=== PATIENT | female | born 1940 | race Caucasian/White ===

== ENCOUNTER 2019-03-29 18:14 | Observation (INO) ==
[2019-03-29] MEDS ORDERED: 0.9 % Sodium Chloride 1,000 ML IVC ONE (18:48)
[2019-03-29 19:00] LABS: Basophils # 0.1 K/mcL (0.0-0.2); Basophils % 1.1 %; Eosinophils # 0.2 K/mcL (0.0-0.6); Eosinophils % 3.2 %; Hematocrit 43.9 % (35.3-44.9); Hemoglobin 13.7 g/dL (11.5-15.4); Immature Granulocytes % 0.5 % (0-4); Lymphocytes % 18.2 %; Mean Corpuscular HGB Conc 31.2 g/dL (31.6-35.5); Mean Corpuscular Hemoglobin 26.5 pg (28.0-33.3); Mean Corpuscular Volume 84.9 fL (83.0-100.0); Mean Platelet Volume 10.7 fL (9.4-12.4); Monocytes # 0.4 K/mcL (0.0-1.3); Monocytes % 7.2 %; Neutrophils # 3.9 K/mcL (1.6-8.9); Platelet Count 178 K/mcL (140-400); Red Blood Count 5.17 M/mcL (3.82-4.97); Red Cell Distribution Width 14.1 % (11.5-14.5); Segmented Neutrophils % 69.8 %; White Blood Count 5.5 K/mcL (4.3-11.1)
--- NOTE | 2019-03-29 19:00 | Emergency Department Note ---
Disposition Clinical Impression: Lightheadedness, Atrial fibrillation with RVR, Near syncope Disposition: Admitted As Inpatient Time of Disposition: 20:50 General Adult HPI - General Chief complaint: ED Dizziness Stated complaint: "dizzy" Time Seen by Provider: 03/29/19 18:21 Source: patient Mode of arrival: private vehicle Limitations: no limitations Nursing Notes Reviewed: Yes Vital Signs Reviewed: Yes - History of Present Illness HPI Narrative: Patient is a 73-year-old female with a past medical history including hypertension, diabetes mellitus2, atrial fibrillation on Cardizem 24 hour release 120 mg and Xarelto number presenting with chief complaint of lightheadedness. The patient states she was at her daughter's house yesterday and when she stood up she developed lightheadedness. She felt nauseous and felt fuzzy in her head and thought she was going to pass out. She stated it lasted about an hour improved when she put a cold wash rags on her head. She denied any chest pain or shortness of breath. She states she has been eating and drinking well. Today while sitting in her rocker chair, she states she suddenly developed the lightheadedness again. She denies any loss of consciousness, chest pain or shortness of breath with this episode. She states it lasted for several minutes. Denies vomiting, abdominal pain, diarrhea, hematuria or dysuria, blood in her stool, recent changes in her medications. She states she recently started vitamin D supplementation. Denies palpitations. The patient states she is not always in A. fib and usually not in A. fib. Pain Scale: 0 - Related Data Home Medications Medication Instructions Recorded Confirmed Aspirin [Adult Aspirin] 81 mg PO HS 03/29/19 03/29/19 Loratadine [Claritin] 10 mg PO DAILY PRN 03/29/19 03/29/19 Metformin HCl 1,000 mg PO BID 03/29/19 03/29/19 Rivaroxaban [Xarelto] 20 mg PO DAILY 03/29/19 03/29/19 Triamterene/HCTZ 37.5/25mg 1 each PO DAILY 03/29/19 03/29/19 [Dyazide] dilTIAZem HCl [Diltiazem 24Hr ER] 120 mg PO DAILY 03/29/19 03/29/19 Allergies Allergy/AdvReac Type Severity Reaction Status Date / Time Penicillins Allergy Rash Verified 03/29/19 18:16 Sulfa (Sulfonamide Allergy Rash Verified 03/29/19 18:16 Antibiotics) adhesive tape AdvReac Redness of Verified 03/29/19 18:16 Skin cephalexin [From Keflex] AdvReac Rash Verified 03/29/19 18:16 All systems ED: reviewed and negative except as stated. Review of Systems: As Per HPI Constitutional: Denies: fever, chills Eyes: Denies: vision change Cardiovascular: Reports: syncope. Denies: chest pain, palpitations Respiratory: Denies: cough, dyspnea Gastrointestinal: Reports: nausea. Denies: abdominal pain, vomiting Genitourinary: Denies: dysuria, hematuria Musculoskeletal: Denies: back pain Neurological: Denies: headache, weakness Past Medical History - Past Medical History Attestation: Yes The following information was validated with the patient. Source: patient Medical history: Reports: atrial fibrillation, diabetes Surgical history: Reports: hysterectomy Psychiatric history: Reports: no psych history - Social History Smoking Status: Never smoker Smokeless Tobacco Status: No Alcohol use: Reports: none Drug use: Reports: none Physical Exam - General Limitations: no limitations General appearance: alert, in no apparent distress - Head Head exam: atraumatic, normocephalic - Eye Eye exam: Present: normal appearance, EOMI - ENT ENT exam: normal exam, normal oropharynx - Neck Neck exam: Present: normal inspection, trachea midline - Chest Chest inspection: Present: normal inspection, symmetric chest wall rise - Respiratory Respiratory exam: Present: normal lung sounds bilaterally. Absent: respiratory distress, wheezes - Cardiovascular Cardiovascular exam: Present: tachycardia, irregular rhythm, other (Bilateral radial pulses are equal and palpable) - Abdominal Exam Abdominal exam: Present: soft, Non-Tender. Absent: distention - Extremities Exam Extremities exam: Present: normal inspection, normal capillary refill. Absent: pedal edema, calf tenderness - Neurological Exam Neurological exam: Present: alert, oriented X3, CN II-XII intact. Absent: motor sensory deficit - Expanded Neurological Exam Speech: Present: fluid speech Motor strength - LUE: 5/5 Motor strength - RUE: 5/5 Motor strength - LLE: 5/5 Motor strength - RLE: 5/5 - Psychiatric Psychiatric exam: Present: normal affect, normal mood - Skin Skin exam: Present: warm, dry Course Vital Signs Temperature 98.1 F 03/29/19 18:15 Pulse Rate 110 03/29/19 18:15 Respiratory Rate 18 03/29/19 18:15 Blood Pressure 209/107 03/29/19 18:15 O2 Sat by Pulse Oximetry 99 03/29/19 18:15 Temperature 98.1 F 03/29/19 18:15 Pulse Rate 94 03/29/19 20:05 Respiratory Rate 16 03/29/19 20:05 Blood Pressure 162/80 03/29/19 20:05 O2 Sat by Pulse Oximetry 100 03/29/19 20:05 Oxygen Delivery Oxygen Delivery Room Air Medical Decision Making - MDM Narrative Medical decision making narrative: Patient has history of atrial fibrillation as is on Cardizem, once a day when 20 mg, Eliquis. She arrived with atrial fibrillation with RVR with heart rate in the [address] changes. She denies any chest pain or shortness of breath but has had 2 episodes in the last 2 days of lightheadedness and feeling like she was going to pass out. Suspect this is secondary to her atrial fibrillation. No recent illnesses. She is afebrile. Normotensive blood pressure. We will obtain lab work, chest x-ray. Patient states that she was recently on ciprofloxacin which she completed for a urinary tract infection or longer complains of dysuria or hematuria. 20:00 Labs reviewed. TSH mildly evaluated. HR now in the 80s and still irregular. We will admit the patient for symptomatic atrial fibrillation, she may need her medications readjusted. The hospitalist has been paged for admission. 20:35 Discussed with hospitalist, Dr. Thompson who does accept admission however he would like me to call cardiology and discussed with him how the patient has new T-wave changes in lead 2. Aspirin will be given. 20:[address] López, cardiology. No further recommendations at this time. - Medical Records Medical records reviewed: Yes I reviewed the patient's medical records. - Lab Data Lab results reviewed: Yes I reviewed the patient's lab results. Result diagrams: 03/29/19 18:40 03/29/19 18:40 Lab Results 03/29/19 03/29/19 03/29/19 Range/Units 18:40 18:40 18:40 WBC 5.5 (4.3-11.1) K/mcL RBC 5.17 H (3.82-4.97) M/mcL Hgb 13.7 (11.5-15.4) g/dL Hct 43.9 (35.3-44.9) % MCV 84.9 (83.0-100.0) fL MCH 26.5 L (28.0-33.3) pg MCHC 31.2 L (31.6-35.5) g/dL RDW 14.1 (11.5-14.5) % Plt Count 178 (140-400) K/mcL MPV 10.7 (9.4-12.4) fL Immature Gran % 0.5 (0-4) % Seg Neutrophils % 69.8 % Lymphocytes % 18.2 % Monocytes % 7.2 % Eosinophils % 3.2 % Basophils % 1.1 % Neutrophils # 3.9 (1.6-8.9) K/mcL Lymphocytes # 1.0 (0.6-4.6) K/mcL Monocytes # 0.4 (0.0-1.3) K/mcL Eosinophils # 0.2 (0.0-0.6) K/mcL Basophils # 0.1 (0.0-0.2) K/mcL PT 10.6 (9.4-12.1) Seconds INR 0.9 APTT 31.2 (26.0-36.0) Seconds Sodium 142 (136-145) mEq/L Potassium 4.5 (3.5-5.1) mEq/L Chloride 106 (98-107) mEq/L Carbon Dioxide 26 (23-29) mEq/L BUN 30 H (8-23) mg/dL Creatinine 1.03 (0.60-1.20) mg/dL Est GFR ( Amer) > 60 (> 60) Est GFR (Non-Af Amer) 52 L (> 60) BUN/Creatinine Ratio 29 H (6-26) Glucose 265 H (70-105) mg/dL Calculated Osmolality 309 H (280-300) Calcium 9.9 (8.6-10.3) mg/dL Troponin I < 0.03 (< 0.04) ng/mL TSH 5.671 H (0.340-5.600) mcIU/mL Urine Color (Yellow) Urine Clarity (Clear) Urine pH (5.0-8.0) pH Units Ur Specific [place] (1.010-1.025) Urine Protein (Neg-Trace) mg/dL Urine Glucose (UA) (Normal) mg/dL Urine Ketones (Negative) mg/dL Urine Blood (Negative) Urine Nitrite (Negative) Urine Bilirubin (Negative) Urine Urobilinogen (Normal) mg/dL Ur Leukocyte Esterase (Negative) Urine Microscopic RBC (0-3) per hpf Urine Microscopic WBC (0-3) per hpf Ur Squamous Epith Cells (None-Few) per lpf Urine Bacteria (None-Few) per hpf Hyaline Casts (None-Few) per lpf Urine Yeast (None Seen) per hpf Ur Culture Indicated? (NO) 03/29/19 Range/Units 19:39 WBC (4.3-11.1) K/mcL RBC (3.82-4.97) M/mcL Hgb (11.5-15.4) g/dL Hct (35.3-44.9) % MCV (83.0-100.0) fL MCH (28.0-33.3) pg MCHC (31.6-35.5) g/dL RDW (11.5-14.5) % Plt Count (140-400) K/mcL MPV (9.4-12.4) fL Immature Gran % (0-4) % Seg Neutrophils % % Lymphocytes % % Monocytes % % Eosinophils % % Basophils % % Neutrophils # (1.6-8.9) K/mcL Lymphocytes # (0.6-4.6) K/mcL Monocytes # (0.0-1.3) K/mcL Eosinophils # (0.0-0.6) K/mcL Basophils # (0.0-0.2) K/mcL PT (9.4-12.1) Seconds INR APTT (26.0-36.0) Seconds Sodium (136-145) mEq/L Potassium (3.5-5.1) mEq/L Chloride (98-107) mEq/L Carbon Dioxide (23-29) mEq/L BUN (8-23) mg/dL Creatinine (0.60-1.20) mg/dL Est GFR ( Amer) (> 60) Est GFR (Non-Af Amer) (> 60) BUN/Creatinine Ratio (6-26) Glucose (70-105) mg/dL Calculated Osmolality (280-300) Calcium (8.6-10.3) mg/dL Troponin I (< 0.04) ng/mL TSH (0.340-5.600) mcIU/mL Urine Color Yellow (Yellow) Urine Clarity Cloudy A (Clear) Urine pH 6.5 (5.0-8.0) pH Units Ur Specific [place] 1.022 (1.010-1.025) Urine Protein Trace (Neg-Trace) mg/dL Urine Glucose (UA) 500 H (Normal) mg/dL Urine Ketones Negative (Negative) mg/dL Urine Blood Small H (Negative) Urine Nitrite Negative (Negative) Urine Bilirubin Negative (Negative) Urine Urobilinogen Normal (Normal) mg/dL Ur Leukocyte Esterase Large H (Negative) Urine Microscopic RBC 5-15 H (0-3) per hpf Urine Microscopic WBC TNTC H (0-3) per hpf Ur Squamous Epith Cells Many H (None-Few) per lpf Urine Bacteria None Seen (None-Few) per hpf Hyaline Casts None Seen (None-Few) per lpf Urine Yeast Many H (None Seen) per hpf Ur Culture Indicated? YES A (NO) - Radiology Data Radiology results reviewed: Yes I reviewed the patient's radiology results. Chest X-Ray 03/29/19 18:48 IMPRESSION: Stable portable study. D/ / Adenike Thakkar Cha, MD / Adenike Thakkar Cha, MD Interpreting Provider: Adenike Thakkar Cha, MD - EKG Data EKG #1 EKG attestation: Yes I reviewed and interpreted this EKG. EKG results narrative: EKG obtained at 1825 shows atrial fibrillation with heart rate 106, QRS duration 95, QTC 409, no ST elevation, no ST depression. New T wave inversion in lead II, Compared to old EKG on 03/13/2017 that shows new T wave inversions. Attestation Statement - Attestation Attestation: I, Niraj Rankin, examined this patient and my medical decision-making was reviewed with the RESIN PAINTER/PA/Advanced Practice Nurse/Resident Physician. I agree with the documented findings, disposition and treatment plan as described except to the extent set forth below. 78-year-old female presents emergency Department with concerns of lightheadedn ess. Patient noticed that she is been having this intermittently over the past 24 hours. Patient has a history of atrial fibrillation however she reports that is paroxysmal. Patient does not feel palpitations when she is in atrial fibrillation. Patient denies syncopal event. She denies a sensation of room spinning or vertigo. She denies fever, chills, nausea, vomiting, diarrhea. Laboratory evaluation the patient has elevated TSH however this is not significantly changed from her previous. Urinalysis does not show an obvious urinary tract infection and will be sent for culture. Initial troponin was negative. EKG showed atrial fibrillation with rapid ventricular rate without evidence of STEMI.I reviewed the EKG with the resident and agree with the interpretation. Patient will be admitted to the hospitalist for further care and evaluation.
[2019-03-29 19:21] LABS: BUN/Creatinine Ratio 29 (6-26); Blood Urea Nitrogen 30 mg/dL (8-23); Calcium 9.9 mg/dL (8.6-10.3); Carbon Dioxide 26 mEq/L (23-29); Chloride 106 mEq/L (98-107); Glucose 265 mg/dL (70-105); Osmolality,Calculated 309 (280-300); Potassium 4.5 mEq/L (3.5-5.1); Sodium 142 mEq/L (136-145); Troponin I < 0.03 ng/mL (< 0.04); eGFR For African Americans > 60 (> 60); eGFR For Non-African Americans 52 (> 60)
[2019-03-29 19:26] LABS: Activated Partial Thrombo Time 31.2 Seconds (26.0-36.0)
[2019-03-29 19:34] LABS: INR 0.9; Prothrombin Time 10.6 Seconds (9.4-12.1)
[2019-03-29 19:35] LABS: Thyroid Stimulating Hormone 5.671 mcIU/mL (0.340-5.600)
[2019-03-29 19:48] LABS: Bilirubin,Urine Negative (Negative); Blood,Urine Small (Negative); Clarity,Urine Cloudy (Clear); Color,Urine Yellow (Yellow); Glucose,Urine (UA) 500 mg/dL (Normal); Ketones,Urine Negative (Negative); Leukocyte Esterase,Urine Large (Negative); Nitrite,Urine Negative (Negative); PH,Urine 6.5 pH Units (5.0-8.0); Protein,Urine Trace mg/dL (Neg-Trace); Specific Gravity,Urine 1.022 (1.010-1.025); Urobilinogen,Urine Normal (Normal)
[2019-03-29 19:51] LABS: Bacteria,Urine None Seen per hpf (None-Few); Hyaline Casts,Urine None Seen per lpf (None-Few); Squamous Epithelial Cell,Urine Many per lpf (None-Few); WBC,Urine TNTC per hpf (0-3)
[2019-03-29 20:01] LABS: Yeast,Urine Many per hpf (None Seen)
[2019-03-29] MEDS ORDERED: Aspirin 81 MG TAB.CHEW PO STA (20:41)
[2019-03-29] MEDS ORDERED: *HR* Labetalol 20 MG/4 ML SYRINGE IVP ONE ×2 (22:28)
[2019-03-29] MEDS ORDERED: Naloxone 0.4 MG/ML INJ IVP PRN (22:37)
[2019-03-29] MEDS ORDERED: *HR* Dextrose 50 % in Water (Syg) 50 ML SYRINGE IVP PRN (22:46)
[2019-03-29] MEDS ORDERED: D5% in Water 1,000 ML IVC PRN (22:46)
[2019-03-29] MEDS ORDERED: Dextrose Gel 15 GM/37.5 ML TUBE PO PRN ×2 (22:46)
[2019-03-29] MEDS ORDERED: Insulin DETEMIR 100 UNIT/ML X5UNITS SQ SCH (23:00)
--- NOTE | 2019-03-29 23:09 | Internal Med History&Physical ---
Date of Encounter: 03/29/19 Time of Encounter: 23:09 Internal Medicine - H&P: HPI Chief complaint: Lightheadedness History of present illness: Ms. Sequeira is a 78 year old female with a past medical history of type 2 diabetes, hypertension, atrial fibrillation on anticoagulation, CKD and venous insufficiency who presented to the ED due to implants of lightheadedness. Gale salazar states that yesterday while at her daughter's house she went to stand up and felt lightheaded. Patient went to the bathroom and sat down where symptoms persisted. She called out to her daughter who came to her aid. After placing a cold towel on her forehead symptoms resolved shortly thereafter. Denies any loss of consciousness, headache, weakness, chest pain, palpitations or feeling like she was going to pass out. Patient resumed her day and felt fine; attended a picnic and was completely asymptomatic. Today while sitting at her desk going through her checkbook she again developed acute onset lightheadedness lasting several minutes. She again denies any loss of consciousness, chest pain or shortness of breath with this episode. Did not report any palpitations or focal weakness, dysarthria, headache or nausea or vomiting. Patient denies any recent illness but states that she was treated for a urinary tract infection several weeks ago with a 5 day course of ciprofloxacin. She denies any current symptoms of dysuria, frequency or urgency. Patient states she has had a similar episode many many years ago that was associated with her A. fib. She otherwise states usually she does not know when she is in A. fib or not. On arrival patient was found to be in atrial fibrillation with RVR with a heart rate in the [address] changes noted. Laboratory workup was otherwise notable for mild hyperglycemia and mildly elevated TSH. Chest x-ray unremarkable. Patient was also noted to be hypertensive with a blood pressure of 209/107. Per patient, after first episode of lightheadedness she contacted her primary care provider who instructed her to hold her antihypertensive medication which she has been doing for the past 2 days. Admitted for lightheadedness presumably secondary to A. fib with RVR. Past Med Surg Social Fam HX - Past Medical History Medical history: atrial fibrillation, diabetes Additional medical history: cx cancer with radiation tx. scoloiosis. renal insuf Psychiatric history: no psych history - Past Surgical History Surgical History: hysterectomy - Social History Smoking Status: Never smoker Smokeless Tobacco Status: No Alcohol use: none Drug use: none Internal Medicine - H&P: Meds Aspirin [Adult Aspirin] 81 mg PO HS 03/29/19 [History] Loratadine [Claritin] 10 mg PO DAILY PRN 03/29/19 [History] Metformin HCl 1,000 mg PO BID 03/29/19 [History] Rivaroxaban [Xarelto] 20 mg PO DAILY 03/29/19 [History] Triamterene/HCTZ 37.5/25mg [Dyazide] 1 each PO DAILY 03/29/19 [History] dilTIAZem HCl [Diltiazem 24Hr ER] 120 mg PO DAILY 03/29/19 [History] Allergy/AdvReac Type Severity Reaction Status Date / Time Penicillins Allergy Rash Verified 03/29/19 18:16 Sulfa (Sulfonamide Allergy Rash Verified 03/29/19 18:16 Antibiotics) adhesive tape AdvReac Redness of Verified 03/29/19 18:16 Skin cephalexin [From Keflex] AdvReac Rash Verified 03/29/19 18:16 All Systems PM: A 10-system review of systems was performed and is negative for pertinent findings except as documented above in the HPI. - Constitutional Constitutional: no chills, no fever(s), no night sweats - EENT Eyes: no change in vision, no discharge, no pain, no photophobia Ears: no ear discharge, no ear pain, no tinnitus Nose, mouth and throat: no dysphagia, no nasal discharge, no neck pain, no sore throat - Cardiovascular Cardiovascular ROS IM: no chest pain, no diaphoresis, no dyspnea, no lightheadedness, no palpitations, no syncope - Respiratory Respiratory: no cough, no dyspnea, no wheezing, no excessive phlegm production - Gastrointestinal Gastrointestinal: no abdominal pain, no diarrhea, no hematemesis, no hematochezia, no melena, no nausea, no vomiting - Genitourinary Genitourinary: no change in urinary stream, no dysuria, no flank pain, no hematuria - Musculoskeletal Musculoskeletal ROS IM: no numbness, no tingling - Integumentary Integumentary IM: no rash, no unusual bruising - Neurological Neurological ROS: no confusion, no convulsions, no focal weakness, no numbness, no tingling, no tremor(s) - Hematologic/Lymphatic Hematologic/Lymphatic: no easy bruising - Constitutional Vitals: Temp Pulse Resp BP Pulse Ox 98.1 F 94 17 199/94 98 03/29/19 21:51 03/29/19 21:51 03/29/19 21:34 03/29/19 21:51 03/29/19 21:51 Exam: General: Alert and oriented 3 lying in bed in no acute distress Skin:Normal color, no rash, no lesions. HEENT:EOM, pupils equal, round and reactive. Cardiovascular:Normal S1 & S2, irregularly irregular. Lungs:Normal breath sounds, no wheezes or crackles. Abdomen:Soft, non-tender, no rigidity. Extremities:No deformity, no edema or tenderness, no joint swelling or clubbing. Neurological:Normal cognition and motor skills. Cranial nerves II through XII intact Pulses:Carotid and radial pulses normal +2. Rest of the physical exam is non contributory Internal Med - H&P Results - Labs CBC & Chem 7: 03/30/19 02:03 03/30/19 02:03 Labs: Short CBC 03/29/19 Range/Units 18:40 WBC 5.5 (4.3-11.1) K/mcL Hgb 13.7 (11.5-15.4) g/dL Hct 43.9 (35.3-44.9) % Plt Count 178 (140-400) K/mcL Neutrophils # 3.9 (1.6-8.9) K/mcL BMP 03/29/19 18:40 Sodium 142 Potassium 4.5 Chloride 106 Carbon Dioxide 26 BUN 30 H Creatinine 1.03 Glucose 265 H Calcium 9.9 Cardiac Enzymes 03/29/19 Range/Units 18:40 Troponin I < 0.03 (< 0.04) ng/mL Urine 03/29/19 Range/Units 19:39 Urine Color Yellow (Yellow) Urine Clarity Cloudy A (Clear) Urine pH 6.5 (5.0-8.0) pH Units Ur Specific [place] 1.022 (1.010-1.025) Urine Protein Trace (Neg-Trace) mg/dL Urine Glucose (UA) 500 H (Normal) mg/dL - Impressions ITS Impressions Chest X-Ray 03/29/19 18:48 IMPRESSION: Stable portable study. D/ / Adenike Thakkar Cha, MD / Adenike Thakkar Cha, MD Interpreting Provider: Adenike Thakkar Cha, MD - Assessment and Plan (1) Atrial fibrillation with RVR Current Visit: Yes Status: Acute Assessment and plan: Patient presented with 2 episodes of lightheadedness, found to be in A. fib with RVR with heart rate in the 1 teens which I suspect to be the etiology of patient's symptoms. Initial troponin negative. Nonspecific EKG changes noted in leads 1 and 2. Patient denies any chest pain or shortness of breath. Currently on a Xarelto for anticoagulation. 1 L of fluids given in the ED. Currently rate controlled. Patient asymptomatic at this time. -Telemetry -Trend troponin -Echocardiogram -Continue anticoagulation; currently on Xarelto -Resume diltiazem in the morning which was held over the past 2 days per patient's primary care recommendation -Patient follows with Dr. López and states that she has a scheduled appointment in one week (2) Lightheadedness Current Visit: Yes Status: Acute Assessment and plan: Patient reporting 2 episodes of lightheadedness occurring once while standing and the other while seated. Found to be in atrial fibrillation with RVR which I suspect is the etiology of the patient's symptoms. Patient otherwise reports no chest pain or shortness of breath. Initial troponin was negative. There was new T-wave inversions in leads 1 and 2, however I suspect this is likely secondary to A. fib. No reports of focal deficits nor was any seen on physical examination. -See management above (3) Hypertensive urgency Current Visit: Yes Status: Acute Assessment and plan: Blood pressure noted to be 209/107 on arrival. According to patient she has been holding her blood pressure medications for the past 2 days after the initial episode of lightheadedness based on the recommendation of her primary care provider. I suspect this is the cause of her current hypertension. One- time dose of labetalol 10 mg was given IV push with improvement in patient's blood pressure -We will monitor blood pressure closely over the next few hours -We will resume home blood pressure medications in the morning. (4) Type 2 diabetes mellitus Current Visit: Yes Status: Acute Assessment and plan: We will start patient on sliding scale plus basal insulin. Accu-Cheks before meals. Qualifiers: Qualified Code(s): E11.9 - Type 2 diabetes mellitus without complications (5) DVT prophylaxis Current Visit: Yes Status: Acute Assessment and plan: Currently on Xarelto - Time Spent With Patient Total time spent is greater than 50% in coordination of care (as documented) at patient's floor/unit and/or counseling patient:
[2019-03-29 23:12] LABS: Estimated Average Glucose 146 mg/dl
[2019-03-29] MEDS: Insulin LISPRO 300 UNITS/3 ML VIAL SQ SCH (23:57)
[2019-03-30 02:15] LABS: Basophils % 0.7 %; Eosinophils # 0.2 K/mcL (0.0-0.6); Eosinophils % 3.4 %; Hematocrit 39.4 % (35.3-44.9); Hemoglobin 12.3 g/dL (11.5-15.4); Immature Granulocytes % 0.3 % (0-4); Lymphocytes # 1.6 K/mcL (0.6-4.6); Lymphocytes % 26.4 %; Mean Corpuscular HGB Conc 31.2 g/dL (31.6-35.5); Mean Corpuscular Hemoglobin 26.3 pg (28.0-33.3); Mean Corpuscular Volume 84.4 fL (83.0-100.0); Mean Platelet Volume 10.8 fL (9.4-12.4); Monocytes # 0.4 K/mcL (0.0-1.3); Monocytes % 6.4 %; Neutrophils # 3.7 K/mcL (1.6-8.9); Platelet Count 169 K/mcL (140-400); Red Blood Count 4.67 M/mcL (3.82-4.97); Red Cell Distribution Width 14.1 % (11.5-14.5); Segmented Neutrophils % 62.8 %
[2019-03-30 02:24] LABS: Prothrombin Time 11.3 Seconds (9.4-12.1)
[2019-03-30 02:35] LABS: Alanine Aminotransferase 13 Units/L (7-52); Albumin 3.7 g/dL (3.5-5.7); Albumin/Globulin Ratio 1.4 (1.1-2.2); Alkaline Phosphatase 75 Units/L (34-104); Aspartate Amino Transferase 14 Units/L (13-39); BUN/Creatinine Ratio 32 (6-26); Bilirubin,Total 0.4 mg/dL (0.3-1.0); Blood Urea Nitrogen 25 mg/dL (8-23); Calcium 9.2 mg/dL (8.6-10.3); Carbon Dioxide 22 mEq/L (23-29); Chloride 111 mEq/L (98-107); Globulin 2.7 g/dL (2.4-3.5); Glucose 143 mg/dL (70-105); Osmolality,Calculated 301 (280-300); Potassium 3.8 mEq/L (3.5-5.1); Sodium 142 mEq/L (136-145); Total Protein 6.4 g/dL (6.4-8.9); eGFR For African Americans > 60 (> 60); eGFR For Non-African Americans > 60 (> 60)
[2019-03-30] MEDS: Insulin LISPRO 300 UNITS/3 ML VIAL SQ SCH ×2 (07:37→12:41)
[2019-03-30] MEDS ORDERED: *HR* Rivaroxaban 10 MG TABLET PO SCH (09:00)
[2019-03-30] MEDS ORDERED: Diltiazem CD (24hr) 120 MG CAPSULE PO SCH (09:00)
--- NOTE | 2019-03-30 13:13 | Internal Med Progress Note ---
Hospitalist Progress Note - Encounter Date of Encounter: 03/30/19 Time of Encounter: 13:11 - Subjective Interval History: No acute events overnight - Exam Vitals: Temp Pulse Resp BP Pulse Ox 97.7 F 71 16 149/80 99 03/30/19 10:51 03/30/19 10:51 03/30/19 10:51 03/30/19 10:51 03/30/19 10:51 Exam: General: Alert and oriented 3 lying in bed in no acute distress Skin:Normal color, no rash, no lesions. HEENT:EOM, pupils equal, round and reactive. Cardiovascular:Normal S1 & S2, irregularly irregular. Lungs:Normal breath sounds, no wheezes or crackles. Abdomen:Soft, non-tender, no rigidity. Extremities:No deformity, no edema or tenderness, no joint swelling or clubbing. Neurological:Normal cognition and motor skills. Cranial nerves II through XII intact Pulses:Carotid and radial pulses normal +2. Rest of the physical exam is non contributory - Assessment and Plan (1) Lightheadedness Current Visit: Yes Status: Acute Assessment and Plan: Patient reporting 2 episodes of lightheadedness occurring once while standing and the other while seated. Found to be in atrial fibrillation with RVR. She received labetalol IV for hypertensive urgency. Now rate controlled Patient says she has been taking her cardizem and only missed one dose on s at Low dose beta hammad added to regimen, continue cardizem. Obtain echo and cardio recs appreciated for stress testing vs outpatient follow up (2) Atrial fibrillation with RVR Current Visit: Yes Status: Acute Assessment and Plan: Patient presented with 2 episodes of lightheadedness, found to be in A. fib with RVR with heart rate in the 1 teens which I suspect to be the etiology of patient's symptoms. Initial troponin negative. Nonspecific EKG changes noted in leads 1 and 2. Patient denies any chest pain or shortness of breath. Currently on a Xarelto for anticoagulation. 1 L of fluids given in the ED. Currently rate controlled. Patient asymptomatic at this time. -Telemetry -Trend troponin -Echocardiogram -Continue anticoagulation; currently on Xarelto -Resume diltiazem in the morning which was held over the past 2 days per patient's primary care recommendation -Patient follows with Dr. López and states that she has a scheduled appointment in one week (3) Hypertensive urgency Current Visit: Yes Status: Acute Assessment and Plan: Blood pressure noted to be 209/107 on arrival. According to patient she has been holding her blood pressure medications for the past 2 days after the initial episode of lightheadedness based on the recommendation of her primary care provider received one dose of labetalol. resume BP meds (4) Type 2 diabetes mellitus Current Visit: Yes Status: Acute Assessment and Plan: We will start patient on sliding scale plus basal insulin. Accu-Cheks before meals. (5) DVT prophylaxis Current Visit: Yes Status: Acute Assessment and Plan: Currently on Xarelto - Time Spent with Patient Total time spent is greater than 50% in coordination of care (as documented) at patient's floor/unit and/or counseling patient: Internal Medicine: Result - Labs CBC & Chem 7: 03/30/19 02:03 03/30/19 02:03 Labs: Short CBC 03/29/19 03/30/19 Range/Units 18:40 02:03 WBC 5.5 6.0 (4.3-11.1) K/mcL Hgb 13.7 12.3 (11.5-15.4) g/dL Hct 43.9 39.4 (35.3-44.9) % Plt Count 178 169 (140-400) K/mcL Neutrophils # 3.9 3.7 (1.6-8.9) K/mcL BMP 03/29/19 03/30/19 18:40 02:03 Sodium 142 142 Potassium 4.5 3.8 Chloride 106 111 H Carbon Dioxide 26 22 L BUN 30 H 25 H Creatinine 1.03 0.77 Glucose 265 H 143 H Calcium 9.9 9.2 Cardiac Enzymes 03/29/19 03/30/19 Range/Units 18:40 02:03 Troponin I < 0.03 < 0.03 (< 0.04) ng/mL Liver Function 03/30/19 Range/Units 02:03 Total Bilirubin 0.4 (0.3-1.0) mg/dL AST 14 (13-39) Units/L ALT 13 (7-52) Units/L Alkaline Phosphatase 75 (34-104) Units/L Albumin 3.7 (3.5-5.7) g/dL Urine 03/29/19 Range/Units 19:39 Urine Color Yellow (Yellow) Urine Clarity Cloudy A (Clear) Urine pH 6.5 (5.0-8.0) pH Units Ur Specific [place] 1.022 (1.010-1.025) Urine Protein Trace (Neg-Trace) mg/dL Urine Glucose (UA) 500 H (Normal) mg/dL - ABG Interpretation ABG results: PT/INR, D-dimer PT 11.3 Seconds (9.4-12.1) 03/30/19 02:03 - Impressions Impressions Chest X-Ray 03/29/19 18:48 IMPRESSION: Stable portable study. D/ / Adenike Thakkar Cha, MD / Adenike Thakkar Cha, MD Interpreting Provider: Adenike Thakkar Cha, MD Consult Discharge Plan - Plan Referrals: Yuliet Harris CNP [Primary Care Provider] - 04/05/19 10:00 am (Please follow up as schedule...) (4) Type 2 diabetes mellitus Qualifiers: Qualified Code(s): E11.9 - Type 2 diabetes mellitus without complications
--- NOTE | 2019-03-30 13:59 | Electrocardiograph Report ---
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
--- NOTE | 2019-03-30 14:08 | Electrocardiograph Report ---
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
--- NOTE | 2019-03-30 15:26 | Cardiology Consult Note ---
Date of Encounter: 03/30/19 Time of Encounter: 15:24 Assessment and Plan (1) Atrial fibrillation with RVR Current Visit: Yes Status: Acute A. fib RVR likely secondary to holding her diltiazem for 2 days prior to admission. Rate better controlled currently at 70 bpm on Xarelto for stroke risk reduction. Follow-up with Dr. López in one week and possible outpatient stress test as seen fit by Dr. López due to her multiple cardiac risk factors Discussion w patient/family: The assessment and plan as outlined above was discussed with the patient and/or family members who expressed understanding and agreement. All questions were answered. Thank you for involving us in the care of your patient. Please call with any questions. History of Present Illness Consult date: 03/30/19 Chief complaint: Dizzy History of present illness: Ms. Sequeira is a 78 year old female with history of diabetes, hypertension, hyperlipidemia, atrial fibrillation on Xarelto for stroke risk reduction presents due to dizziness and lightheadedness. Patient describes a spinning sensation with mild loss of balance and nausea when standing from a sitting po sition. This was associated on presentation with A. fib RVR with a rate above 100. This may or may not have correlated with holding her Cardizem for 2 days. Patient's blood pressure on arrival also significant elevated with a systolic blood pressure above 200 mmHg. Today she is well rate controlled in the mid 70s back on her by mouth Cardizem doing well asymptomatic denying any chest pain, shortness of breath, dyspnea on exertion, orthopnea, PND, presyncope or syncope Echocardiogram is pending, patient follows with Dr. López and we discussed the possibility of an outpatient stress test which will be further assessed by Dr. López as she has appointment in one week. This is due to her multiple cardiac risk factors including diabetes. Past Med Surg Social Fam HX - Past Medical History Medical history: atrial fibrillation, diabetes Additional medical history: cx cancer with radiation tx. scoloiosis. renal insuf Psychiatric history: no psych history - Past Surgical History Surgical History: hysterectomy - Social History Smoking Status: Never smoker Smokeless Tobacco Status: No Alcohol use: none Drug use: none Medications and Allergies Aspirin [Adult Aspirin] 81 mg PO HS 03/29/19 [History] Loratadine [Claritin] 10 mg PO DAILY PRN 03/29/19 [History] Metformin HCl 1,000 mg PO BID 03/29/19 [History] Rivaroxaban [Xarelto] 20 mg PO DAILY 03/29/19 [History] Triamterene/HCTZ 37.5/25mg [Dyazide] 1 each PO DAILY 03/29/19 [History] dilTIAZem HCl [Diltiazem 24Hr ER] 120 mg PO DAILY 03/29/19 [History] Allergy/AdvReac Type Severity Reaction Status Date / Time Penicillins Allergy Rash Verified 03/29/19 18:16 Sulfa (Sulfonamide Allergy Rash Verified 03/29/19 18:16 Antibiotics) adhesive tape AdvReac Redness of Verified 03/29/19 18:16 Skin cephalexin [From Keflex] AdvReac Rash Verified 03/29/19 18:16 All Systems Review: The remainder of the systems were reviewed and are negative Physical Examination General: Conversant, No Apparent Distress HEENT: Atraumatic, Normocephaly, Mucus Membranes Moist Neck: No JVD, Normal carotid pulses Cardiac: Reg Rate and Rhythm, Normal S1 and S2, No Murmur Lungs: Normal Breath Sounds, No Wheeze, Rales, Rhonchi Neuro: Alert and responsive, No focal deficits noted Abdomen: Soft, Non-Tender Skin: No rashes noted on visualized skin Musculoskeletal: No Chest Wall Tenderness Extremities: No Clubbing, No Cyanosis, No Edema, Normal Pulses Results 03/30/19 02:03 03/30/19 02:03 Lab Results 03/29/19 03/29/19 03/29/19 18:40 18:40 18:40 WBC 5.5 Hgb 13.7 Hct 43.9 Plt Count 178 INR 0.9 APTT 31.2 Sodium 142 Potassium 4.5 Chloride 106 Carbon Dioxide 26 BUN 30 H Creatinine 1.03 Glucose 265 H Calcium 9.9 Total Bilirubin AST ALT Alkaline Phosphatase Troponin I < 0.03 TSH 5.671 H 03/30/19 03/30/19 03/30/19 02:03 02:03 02:03 WBC 6.0 Hgb 12.3 Hct 39.4 Plt Count 169 INR 1.0 APTT Sodium 142 Potassium 3.8 Chloride 111 H Carbon Dioxide 22 L BUN 25 H Creatinine 0.77 Glucose 143 H Calcium 9.2 Total Bilirubin 0.4 AST 14 ALT 13 Alkaline Phosphatase 75 Troponin I TSH 03/30/19 02:03 WBC Hgb Hct Plt Count INR APTT Sodium Potassium Chloride Carbon Dioxide BUN Creatinine Glucose Calcium Total Bilirubin AST ALT Alkaline Phosphatase Troponin I < 0.03 TSH Consult Discharge Plan - Plan Referrals: Yuliet Harris CNP [Primary Care Provider] - 04/05/19 10:00 am (Please follow up as schedule...)
[2019-03-30 15:28] VITALS: BP 133/74
--- NOTE | 2019-03-30 15:53 | Discharge Summary ---
Date of Encounter: 03/30/19 Time of Encounter: 09:00 - Discharge Diagnosis (1) Atrial fibrillation with RVR Priority: Primary Status: Acute Assessment and Plan: 78 year old female with a past medical history of type 2 diabetes, hypertension, atrial fibrillation on anticoagulation, CKD and venous insufficiency who presented to the ED due to implants of lightheadedness. Patient states that yesterday while at her daughter's house she went to stand up and felt lightheaded. Patient went to the bathroom and sat down where symptoms persisted. She called out to her daughter who came to her aid. After placing a cold towel on her forehead symptoms resolved shortly thereafter. Denies any loss of consciousness, headache, weakness, chest pain, palpitations or feeling like she was going to pass out. Patient resumed her day and felt fine; attended a picnic and was completely asymptomatic. Today while sitting at her desk going through her checkbook she again developed acute onset lightheadedness lasting several minute She was assessed with afib with RVR and hypertensive urgency. She received 1 dose of labetalol which apparently controlled her BP and heart rate. She had apparently missed 2 doses of cardizem at home. She was restarted on her cardizem and rate is controlled now and BP is stable. Echo showed preserved EF and no wall motion abnormalities. Outpatient stress test recommended with Dr Stephenson if indicated (2) Lightheadedness Priority: Primary Status: Acute (3) Hypertensive urgency Priority: Primary Status: Acute (4) Type 2 diabetes mellitus Priority: Primary Status: Acute Qualifiers: Qualified Code(s): E11.9 - Type 2 diabetes mellitus without complications (5) DVT prophylaxis Priority: Primary Status: Acute Hospital course: Ms. Sequeira is a 78 year old female - Time Spent with Patient Total time spent providing and/or coordinating discharge services: - Discharge Medications Prescriptions: Continued Aspirin [Adult Aspirin] 81 mg PO HS dilTIAZem HCl [Diltiazem 24Hr ER] 120 mg PO DAILY Loratadine [Claritin] 10 mg PO DAILY PRN PRN Reason: Allergy Symptoms Metformin HCl 1,000 mg PO BID Rivaroxaban [Xarelto] 20 mg PO DAILY Triamterene/HCTZ 37.5/25mg [Dyazide] 1 each PO DAILY Home Medications: Aspirin [Adult Aspirin] 81 mg PO HS 03/29/19 [History] Loratadine [Claritin] 10 mg PO DAILY PRN 03/29/19 [History] Metformin HCl 1,000 mg PO BID 03/29/19 [History] Rivaroxaban [Xarelto] 20 mg PO DAILY 03/29/19 [History] Triamterene/HCTZ 37.5/25mg [Dyazide] 1 each PO DAILY 03/29/19 [History] dilTIAZem HCl [Diltiazem 24Hr ER] 120 mg PO DAILY 03/29/19 [History] Allergies/Adverse Reactions: Allergy/AdvReac Type Severity Reaction Status Date / Time Penicillins Allergy Rash Verified 03/29/19 18:16 Sulfa (Sulfonamide Allergy Rash Verified 03/29/19 18:16 Antibiotics) adhesive tape AdvReac Redness of Verified 03/29/19 18:16 Skin cephalexin [From Keflex] AdvReac Rash Verified 03/29/19 18:16 Date of admission: 03/29/19 20:55 Primary care physician: Yuliet Harris CNP Consults: 03/30/19 10:04 Consult to Cardiology [CONS] Routine Comment: Consulting Provider: Cardiology Rosa Reason for Consult: afib with RVR on cardizem, reportedly missed one dose, follows with dr stephenson Call Completed: No - Constitutional Vitals: Temp Pulse Resp BP Pulse Ox 97.7 F 65 16 133/74 98 03/30/19 15:26 03/30/19 15:26 03/30/19 15:26 03/30/19 15:26 03/30/19 15:26 General appearance: Present: A&O X 3 Exam: NAD - Head Head exam: Present: atraumatic, normocephalic - Eye Eye exam: Present: PERRL, conjuntiva pink, sclera anicteric Pupils: Present: PERRL - Neck Neck exam general surgery: Present: supple, trachea midline. Absent: lymphadenopathy - Respiratory Respiratory exam: Present: CTAB. Absent: accessory muscle use, rales, rhonchi, wheezes - Cardiovascular Cardiovascular exam: Present: RRR, +S1, +S2. Absent: diastolic murmur, gallop, rubs, systolic murmur - GI/Abdominal GI/Abdominal exam: Present: normal bowel sounds, soft, no peritoneal signs. Absent: distended, tenderness - Extremities Exam Extremities exam: Present: warm, radial pulses palpable and symmetrical. Absent: calf tenderness, cyanotic, pedal edema - Neurological Exam Neurological exam: Present: CN II-XII intact, oriented X3, no focal deficits. Absent: pronater drift, facial droop, speech deficit - Skin Skin exam: Present: dry, intact - Patient Status Disposition: Home, Self-Care Condition: Good - Discharge Instructions Follow Up With: Yuliet Harris CNP [Primary Care Provider] - 04/05/19 10:00 am (Please follow up as schedule...)
[2019-03-30] MEDS ORDERED: Aspirin Enteric Coated 81 MG Tablet PO SCH (21:00)
== END 2019-03-30 16:54 | disposition home or self-care (01) ==
LOC: EMEROOARM 18:14 → 2ANU 18:14
PROVIDERS: ADMIT Internal Medicine; ATTEND Internal Medicine